=== PATIENT | male | born 1985 | race Two or more races ===

== ENCOUNTER 2018-02-15 20:17 | Emergency (ER) | payer OTHER ==
[~2018-02-15] VITALS: Ht 177.8 cm; Wt 92.5 kg
== END 2018-02-15 21:47 | disposition home or self-care (01) ==
LOC: ER 20:17
DX: T22.20XA Burn of second degree of shoulder and upper limb, except wrist and hand, unspecified site, initial encounter (principal); X08.8XXA Exposure to other specified smoke, fire and flames, initial encounter; Y93.89 Activity, other specified; Y92.89 Other specified places as the place of occurrence of the external cause; Y99.8 Other external cause status